=== PATIENT | male | born 1975 | race Caucasian/White ===

== ENCOUNTER 2016-08-21 18:18 | Emergency (ER) | payer SELFPAY ==
[2016-08-21 19:55] LABS: BASO % 0.2 % (0.2-1.0); EOS # 0.1 (0.0-0.5); EOS % 0.6 % (0.9-2.9); HEMATOCRIT 45.7 % (32.0-52.0); HEMOGLOBIN 15.8 gm/l (14.0-18.0); IMM NEUT% 0.3 % (0-1); LYMPH # 2.4 (1.0-4.8); LYMPH % 26.2 % (15-45); MEAN CELL VOLUME 93.1 fl (80.0-94.0); MEAN CORPUSCULAR HEMOGLOBIN 32.2 pg (27.0-31.0); MEAN CORPUSCULAR HGB CONC 34.6 g/dl (33.0-37.0); MEAN PLATELET VOLUME 9.5 fl (7.4-10.4); MONO # 0.7 (0.0-0.8); MONO % 7.7 % (4-12); PLATELET COUNT 237 K/mm3 (130-400); RED CELL DISTRIBUTION WIDTH 12.6 % (11.5-14.5)
[2016-08-21 20:08] LABS: INR 0.97; PROTHROMBIN TIME 10.2 SECONDS (9.3-11.4)
[2016-08-21 20:13] LABS: ALB/GLOB RATIO 1.7 (>1.0); ALBUMIN 4.6 gm/dL (3.5-5.7); CALCIUM 9.3 mg/dL (8.6-10.3); MAGNESIUM 2.4 mg/dL (1.9-2.7)
[2016-08-21 20:16] LABS: VENOUS BLOOD GAS BASE EXCESS -2.1 mmol/L (-2.0-2.0); VENOUS BLOOD GAS HCO3 22.3 mmol/L (22.0-27.0)
[2016-08-21 20:32] LABS: PH,URINE 6.5 (5.0-8.0); URINE APPEARANCE CLEAR; URINE BILIRUBIN NEGATIVE (NEGATIVE); URINE BLOOD NEGATIVE (NEGATIVE); URINE COLOR YELLOW; URINE GLUCOSE (UA) NEGATIVE (NEGATIVE); URINE LEUKOCYTE ESTERASE NEGATIVE (NEGATIVE); URINE NITRITE NEGATIVE (NEGATIVE); URINE PROTEIN NEGATIVE (NEGATIVE); URINE UROBILINOGEN NORMAL (0-1 mg/dl)
[2016-08-21 20:51] LABS: AMPHETAMINES/METHAMPHETAMINES NEGATIVE (NEGATIVE); COCAINE NEGATIVE (NEGATIVE); MARIJUANA POSITIVE (NEGATIVE); METHADONE NEGATIVE (NEGATIVE); OPIATES NEGATIVE (NEGATIVE); TRICYCLIC ANTIDEPRESSANTS NEGATIVE (NEGATIVE)
== END 2016-08-21 21:00 | disposition home or self-care (01) ==
LOC: ED 18:18
DX: R53.1 Weakness (principal); R00.0 Tachycardia, unspecified; F17.210 Nicotine dependence, cigarettes, uncomplicated; Z88.5 Allergy status to narcotic agent